=== PATIENT | female | born 1965 | race Two or more races ===

== ENCOUNTER 2017-02-22 19:15 | Emergency (ER) | payer SELFPAY ==
[~2017-02-22] VITALS: Ht 154.9 cm; Wt 63.5 kg
[2017-02-22 20:47] LABS: Basophils # (auto) 0.1 uL; Basophils % (auto) 0.8 % (0.0-2.0); Eosinophils # (auto) 0.2 uL; Hematocrit 29.9 % (36.0-46.0); Hemoglobin 10.1 g/dL (12.2-16.2); Lymphocytes % (auto) 36.6 % (10.0-50.0); Mean Corpuscular Hemoglobin 28.5 pg (28.0-32.0); Mean Corpuscular Hgb Conc. 33.9 g/dL (32.0-36.0); Monocytes # (auto) 0.7 uL; Monocytes % (auto) 8.3 % (0.0-12.0); Neutrophils # (auto) 4.2 uL; Neutrophils % (auto) 51.3 % (37.0-80.0); Nucleated Red Blood Cells % 0.1 %; Platelet Count (auto) 500 10^3/uL (140-450); Red Blood Cells 3.56 10^6/uL (4.0-5.20); Red Cell Distribution Width 14.9 % (11.8-14.3); White Blood Cell 8.2 10^3/uL (4.4-10.8)
[2017-02-22 21:02] LABS: Albumin 3.6 g/dL (3.4-5.0); Anion Gap 9 (5-15); Blood Urea Nitrogen 13 mg/dL (7-18); Calcium 8.4 mg/dL (8.5-10.1); Carbon Dioxide 22 mmol/L (21-32); Chloride 108 mmol/L (98-107); Magnesium 2.5 mg/dL (1.6-2.6); Potassium 4.1 mmol/L (3.5-5.1); Sodium 139 mmol/L (136-145)
[2017-02-22 21:05] LABS: Alanine Aminotransferase 24 U/L (13-56); Aspartate Aminotransferase 16 U/L (15-37); BUN/Creatinine Ratio 22.8; GFR African American 145 mL/min; GFR Non-African American 120 mL/min; Glucose 91 mg/dL (74-106)
[2017-02-22 21:10] LABS: Alkaline Phosphatase 78 U/L (45-117); Bilirubin, Total 0.2 mg/dL (0.2-1.0); Total Protein 7.4 g/dL (6.4-8.2)
[2017-02-22 21:13] LABS: Urine Bacteria NONE SEEN /hpf (None Seen); Urine Blood Negative /uL (Negative); Urine Mucus FEW (None Seen); Urine Specific Gravity 1.014 (1.001-1.035); Urine WBC <1 /hpf (0 - 5)
[2017-02-23 07:31] VITALS: BP 96/57
== END 2017-02-23 07:33 | disposition home or self-care (01) ==
LOC: ER 19:15
DX: R07.9 Chest pain, unspecified (principal); R51 Headache
CPT/HCPCS: 36415; 71010; 80053; 81001; 83735; 84443; 84484; 85025; 93005

== ENCOUNTER 2017-03-13 22:59 | Emergency (ER) | payer SELFPAY ==
[~2017-03-13] VITALS: Ht 157.5 cm; Wt 57.2 kg
[2017-03-13 23:55] LABS: Basophils # (auto) 0.1 uL; Basophils % (auto) 1.3 % (0.0-2.0); Eosinophils # (auto) 0.2 uL; Mean Platelet Volume 6.1 fL (6.9-10.8); Nucleated Red Blood Cells % 0.2 %; White Blood Cell 6.7 10^3/uL (4.4-10.8)
[2017-03-13 23:57] LABS: Eosinophils % (auto) 3.2 % (0.0-7.0); Hematocrit 23.4 % (36.0-46.0); Hemoglobin 7.6 g/dL (12.2-16.2); Lymphocytes # (auto) 2.8 uL; Lymphocytes % (auto) 41.5 % (10.0-50.0); Mean Corpuscular Hemoglobin 26.3 pg (28.0-32.0); Mean Corpuscular Hgb Conc. 32.3 g/dL (32.0-36.0); Mean Corpuscular Volume 81.2 fL (80.0-100.0); Monocytes # (auto) 0.6 uL; Monocytes % (auto) 8.5 % (0.0-12.0); Neutrophils % (auto) 45.5 % (37.0-80.0); Platelet Count (auto) 495 10^3/uL (140-450); Red Cell Distribution Width 14.6 % (11.8-14.3)
[2017-03-14] VITALS (10 sets, daily range): BP systolic 104–115; BP diastolic 42–71
[2017-03-14 00:06] LABS: Urine Bilirubin Negative (Negative); Urine Blood Negative /uL (Negative); Urine Color Colorless (Yellow); Urine Glucose Normal (Normal); Urine Ketone Negative (Negative); Urine Mucus FEW (None Seen); Urine Nitrite Negative (Negative); Urine RBC <1 /hpf (0 - 4); Urine Squamous Epithelial Cell FEW /hpf (<5); Urine Urobilinogen Normal (Negative); Urine pH 5.5 (5.0-8.0)
[2017-03-14 00:12] LABS: INR 0.92 (0.9-1.15)
[2017-03-14 00:13] LABS: Albumin 3.4 g/dL (3.4-5.0); Calcium 8.8 mg/dL (8.5-10.1); Partial Thromboplastin Time 22.6 sec (22.64-33.71); Potassium 4.1 mmol/L (3.5-5.1)
[2017-03-14 00:16] LABS: Bilirubin, Total 0.2 mg/dL (0.2-1.0); Total Protein 7.1 g/dL (6.4-8.2)
== END 2017-03-14 11:30 | disposition home or self-care (01) ==
LOC: ER 23:09
DX: N93.9 Abnormal uterine and vaginal bleeding, unspecified (principal); D64.9 Anemia, unspecified; R53.1 Weakness; R51 Headache
CPT/HCPCS: 36415; 80053; 81001; 82962; 84702; 85025; 85610; 85730; 86850; 86900; 86901; 86920; 99285; J7030; P9016; 36430

== ENCOUNTER 2021-08-09 11:04 | Emergency (ER) | payer MEDICAID ==
[~2021-08-09] VITALS: Ht 170.2 cm; Wt 68.0 kg
[2021-08-09] MEDS ORDERED: MORPHINE SULFATE 4 MG/ML SYR/VIAL IV ONE (11:30)
[2021-08-09] MEDS ORDERED: ONDANSETRON HCL 4 MG/2 ML VIAL IV ONE (11:30)
[2021-08-09] MEDS ORDERED: SODIUM CHLORIDE 0.9% 1,000 ML IV ONE (11:30)
[2021-08-09 11:57] LABS: Basophils # (auto) 0.1 10 ^3/uL (0-0.2); Basophils % (auto) 1.7 % (0.0-2.0); Eosinophils # (auto) 0.4 10 ^3/uL (0-0.8); Eosinophils % (auto) 5.7 % (0.0-7.0); Hemoglobin 13.1 g/dL (12.2-16.2); Lymphocytes # (auto) 2.2 10 ^3/uL (0.4-5.4); Lymphocytes % (auto) 34.8 % (10.0-50.0); Mean Corpuscular Hemoglobin 28.6 pg (28.0-32.0); Mean Corpuscular Hgb Conc. 33.5 g/dL (32.0-36.0); Mean Corpuscular Volume 85.3 fL (80.0-100.0); Monocytes # (auto) 0.4 10 ^3/uL (0-1.3); Monocytes % (auto) 5.7 % (0.0-12.0); Neutrophils # (auto) 3.3 10 ^3/uL (1.6-8.6); Neutrophils % (auto) 52.1 % (37.0-80.0); Nucleated Red Blood Cells % 0.2 %; Red Blood Cells 4.58 10^6/uL (4.0-5.20); Red Cell Distribution Width 13.6 % (11.8-14.3); White Blood Cell 6.3 10^3/uL (4.4-10.8)
[2021-08-09 12:14] LABS: Albumin 3.9 g/dL (3.4-5.0); BUN/Creatinine Ratio 12.3; Magnesium 2.5 mg/dL (1.6-2.6); Potassium 4.1 mmol/L (3.5-5.1)
[2021-08-09 12:23] LABS: Bilirubin, Total 0.2 mg/dL (0.2-1.0); Total Protein 7.8 g/dL (6.4-8.2)
[2021-08-09 15:01] VITALS: BP 97/42
== END 2021-08-09 15:34 | disposition home or self-care (01) ==
LOC: EDBD 11:04 → ER 11:04
DX: R07.89 Other chest pain (principal); Z86.2 Personal history of diseases of the blood and blood-forming organs and certain disorders involving the immune mechanism
CPT/HCPCS: 36415; 71045; 80053; 83735; 83880; 84484; 85025; 93005; 96361; 96374; 96375; 99285; J2270; J2405; J7030

== ENCOUNTER 2022-11-30 22:52 | Emergency (ER) | payer SELFPAY ==
[~2022-11-30] VITALS: Ht 154.9 cm; Wt 58.5 kg
[2022-12-01] MEDS ORDERED: IBUP-1454 PO (01:56)
[2022-12-01] MEDS ORDERED: AUG875T PO (01:56)
[2022-12-01] MEDS ORDERED: IBUPROFEN 800 MG TAB PO ONE (02:00)
[2022-12-01] MEDS ORDERED: TETANUS-DIPTH-ACEL PERTUSSIS 0.5ML SYR Tdap IM ONE (02:00)
[2022-12-01 03:51] VITALS: BP 136/81; PULSE 77; RESP 18; TEMP 97.7; O2SAT 96
== END 2022-12-01 03:11 | disposition home or self-care (01) ==
LOC: ER 22:57
DX: S61.211A Laceration without foreign body of left index finger without damage to nail, initial encounter (principal); S60.419A Abrasion of unspecified finger, initial encounter; E78.5 Hyperlipidemia, unspecified; W54.0XXA Bitten by dog, initial encounter; Y93.89 Activity, other specified; Y92.89 Other specified places as the place of occurrence of the external cause; Y99.8 Other external cause status
CPT/HCPCS: 90471; 90715